=== PATIENT | female | born 1940 | race Caucasian/White ===

== ENCOUNTER → 2016-12-08 | Outpatient (CLI) | payer OTHER ==
[~2016-12-08] MED LIST: ADVAIR 250/501 DISK IH; ASPIR 8181 M1 PO; COMBIVENT RESPIM4 GM IH; LEVOTHYROXINE SODIUM; Potassium; TYLENOL REGULA325 MG PO; VITAMIN B122500 MCG PO
== END | disposition home or self-care (01) ==
LOC: AMB 10:30
DX: Z45.2 Encounter for adjustment and management of vascular access device (principal); I87.8 Other specified disorders of veins
CPT/HCPCS: C1769; J0690; J1644; J2250; J3010; S0020